=== PATIENT | female | born 1975 | race Caucasian/White ===

== ENCOUNTER 2021-04-26 12:22 | Emergency (ER) | payer MEDICAID ==
[~2021-04-26] VITALS: Ht 165.1 cm; Wt 122.8 kg
[2021-04-26 12:36] VITALS: BP 136/82
[2021-04-26] MEDS ORDERED: COROTSUS RIGHT EAR (13:11)
== END 2021-04-26 13:26 | disposition home or self-care (01) ==
LOC: ER 12:23
DX: H60.91 Unspecified otitis externa, right ear (principal); H92.01 Otalgia, right ear; Z88.8 Allergy status to other drugs, medicaments and biological substances; Z79.2 Long term (current) use of antibiotics
CPT/HCPCS: 99283